=== PATIENT | female | born 1955 | race Caucasian/White ===

== ENCOUNTER 2018-10-20 15:41 | Inpatient (IN) | payer OTHER ==
[2018-10-20] MEDS ORDERED: NORepinephrine 8MG/250 ML (PMX 250 ML IV (16:20)
[2018-10-20 16:39] LABS: ABNORMAL IP MESSAGE 1; HEMATOCRIT 31.1 % (37.0-47.0); HEMOGLOBIN 8.9 g/dl (12.0-16.0); MEAN CORPUSCULAR HEMOGLOBIN 28.2 pg (29.0-33.0); MEAN CORPUSCULAR HGB CONC 28.6 g/dl (32.0-37.0); MEAN CORPUSCULAR VOLUME 98.4 fl (82.0-101.0); MEAN PLATELET VOLUME 8.7 fl (7.4-10.4); PLATELET COUNT 654 10^3/UL (140-415); RED BLOOD COUNT 3.16 10^6/ul (4.20-5.40); RED CELL DISTRIBUTION WIDTH 16.9 % (11.5-14.5)
[2018-10-20] MEDS: CEFEPIME 2GM/50 ML (PMX) 50 ML IVPB (16:39)
[2018-10-20 16:43] LABS: PROTIME 15.3 Sec (11.9-14.9); PT RATIO 1.2
[2018-10-20 16:44] LABS: PARTIAL THROMBOPLASTIN TIME 32.2 Sec (23.0-35.0)
[2018-10-20 16:45] LABS: ADD MAN DIFF? YES; POSITIVE DIFF @See below
[2018-10-20 16:46] LABS: PATH REVIEW? YES
[2018-10-20 16:48] LABS: ALANINE AMINOTRANSFERASE 10 IU/L (13-69); ALBUMIN/GLOBULIN RATIO 0.78; ALKALINE PHOSPHATASE 162 IU/L (42-121); ANION GAP 15 (5-13); ASPARTATE AMINO TRANSFERASE 44 IU/L (15-46); BLOOD UREA NITROGEN 29 mg/dl (7-20); CALCIUM 9.1 mg/dl (8.4-10.2); CARBON DIOXIDE 16 mmol/L (21-31); CHLORIDE 102 mmol/L (97-110); CREATININE 0.49 mg/dl (0.44-1.00); Estimated GFR > 60 mL/min (>60); GLUCOSE 367 mg/dl (70-220); POTASSIUM 4.6 mmol/L (3.5-5.1); SODIUM 133 mmol/L (135-144); TOTAL PROTEIN 6.8 g/dl (6.1-8.1)
[2018-10-20 16:49] LABS: AADO2 Arterial 320.3 mmHg (7.0-24.0); Allen Test ACCEPTAB; Arterial Base Excess -8.5 mmol/L (-3.0-3); Arterial Blood Gas Oxygen Sat 99.6 mmHG (95.0-98.0); Arterial COHb 0.3 % (0.0-3.0); Arterial Fraction of Oxyhgb 98.7 % (93.0-99.0); Arterial MetHb 0.6 % (0.0-1.5); Arterial pCO2 34.6 mmhg (35-45); MODE VENT - AC; Site Left Radial
[2018-10-20] MEDS: NORepinephrine 8MG/250 ML (PMX 250 ML IV (16:49)
[2018-10-20] MEDS: SODIUM CHLORIDE 0.9% 1L BAG IV* (16:50)
[2018-10-20 17:00] LABS: TROPONIN-I < 0.012 ng/ml (0.000-0.120)
[2018-10-20 17:14] LABS: ADD UMIC YES; UR AMORPHOUS CRYSTAL FEW /HPF (NONE SEEN); UR ASCORBIC ACID 20 mg/dL (NEGATIVE); UR BILIRUBIN (Dip) NEGATIVE (NEGATIVE); UR BLOOD (Dip) NEGATIVE (NEGATIVE); UR CLARITY CLOUDY (CLEAR); UR COLOR YELLOW (YELLOW); UR GLUCOSE (Dip) NEGATIVE (NEGATIVE); UR KETONES (Dip) NEGATIVE (NEGATIVE); UR LEUKOCYTE ESTERASE (Dip) 2+ Leu/ul (NEGATIVE); UR NITRITE (Dip) NEGATIVE (NEGATIVE); UR RBC 16 /HPF (0-5); UR SPECIFIC GRAVITY (Dip) 1.015 (1.003-1.030); UR TOTAL PROTEIN (Dip) 1+ mg/dl (NEGATIVE); UR UROBILINOGEN (Dip) NEGATIVE (NEGATIVE); UR WBC 32 /HPF (0-5)
[2018-10-20] MEDS: ACETAMINOPHEN 325 MG SUPP PR (17:20)
[2018-10-20] MEDS: VANCOMYCIN 1 GM (PMX) 250 ML IVPB (17:24)
[2018-10-20 17:28] LABS: ANISOCYTOSIS 1+ (0-0); BAND NEUTROPHILS % (M) 4 % (0-4); LYMPHOCYTES #M 6.5 10^3/ul (0.8-2.9); LYMPHOCYTES % (M) 25 % (15-51); MONOCYTE #M 1.3 10^3/ul (0.3-0.9); MONOCYTES % (M) 5 % (0-11); MYELOCYTES #M 0.5 10^3/ul (0.0-0.0); MYELOCYTES % (M) 2 % (0-0); PLATELET MORPHOLOGY COMMENT @See below; POLYCHROMASIA 1+ (0-0); PROMYELOCYTES #M 0.2 10^3/ul (0-0); PROMYELOCYTES % (M) 1 % (0-0); SEG NEUT #M 16.6 10^3/ul (1.6-7.5); SEGMENTED NEUTROPHILS (M) % 63 % (39-77); SMUDGE%M 7 % (0-0)
[2018-10-20] MEDS ORDERED: LIDOCAINE 1% (MDV) 20 ML INJ (19:28)
[2018-10-20] MEDS ORDERED: DOCUSATE SODIUM 100 MG CAP PO (20:30)
[2018-10-20] MEDS ORDERED: ACETAMINOPHEN 650MG/20.3ML CUP PO (20:30)
[2018-10-20] MEDS ORDERED: IPRATROPIUM (NEB) 0.5 MG/2.5 ML AMP NEB (20:30)
[2018-10-20] MEDS ORDERED: BISACODYL (EC) 5 MG TAB PO (20:30)
[2018-10-20] MEDS ORDERED: LEVALBUTEROL (NEB) 1.25 MG/0.5 ML AMP HHN (20:30)
[2018-10-20 20:36] LABS: LACTIC ACID 1.6 mmol/L (0.5-2.0)
[2018-10-20] MEDS: SOD CHLORIDE 0.9% 1,000 ML IV (20:50)
[2018-10-20] MEDS ORDERED: VANCOMYCIN IV PER PHARMACY XX (21:00)
[2018-10-21] MEDS ORDERED: IPRATROPIUM (HFA) 12.9 GM INHALER INH
[2018-10-21] MEDS ORDERED: ALBUTEROL/IPRATROPIUM (NEB) 3 ML AMP INH
[2018-10-21] MEDS ORDERED: NON-FORMULARY/PATIENT OWN MED (Methylphenidate Hcl* 10 MG) GTB
[2018-10-21] MEDS: PIPER-TAZO 3.375 GM IV (PMX) 100 ML IVPB ×4 (00:55→17:57)
[2018-10-21 01:41] LABS: CREATINE KINASE 64 IU/L (23-200)
[2018-10-21 01:51] LABS: CK INDEX 1.6; CK-MB 1.01 ng/ml (0.0-2.4)
[2018-10-21 01:54] LABS: TROPONIN-I 0.037 ng/ml (0.000-0.120)
[2018-10-21] MEDS: LEVETIRACETAM (100 MG/ML PO SYG) GTB ×3 (02:04→16:02)
[2018-10-21] MEDS: VANCOMYCIN 500 MG (PMX) 100 ML IVPB ×2 (04:26→16:03)
[2018-10-21 05:21] LABS: ADD MAN DIFF? NO
[2018-10-21 05:37] LABS: WHITE BLOOD COUNT 11.6 10^3/ul (4.8-10.8)
[2018-10-21 05:37] LABS: BASOPHILS % 0.3 % (0.0-2.0); EOSINOPHILS % 0.3 % (0.0-7.0); HEMATOCRIT 25.4 % (37.0-47.0); HEMOGLOBIN 7.7 g/dl (12.0-16.0); LYMPHOCYTES # 1.2 10^3/ul (0.8-2.9); LYMPHOCYTES % 10.4 % (15.0-51.0); MEAN CORPUSCULAR HEMOGLOBIN 28.4 pg (29.0-33.0); MEAN CORPUSCULAR HGB CONC 30.3 g/dl (32.0-37.0); MEAN CORPUSCULAR VOLUME 93.7 fl (82.0-101.0); MEAN PLATELET VOLUME 8.6 fl (7.4-10.4); MONOCYTE # 0.7 10^3/ul (0.3-0.9); MONOCYTES % 5.7 % (0.0-11.0); NEUTROPHIL # 9.5 10^3/ul (1.6-7.5); NEUTROPHILS % 81.8 % (39.0-77.0); PLATELET COUNT 492 10^3/UL (140-415); RED BLOOD COUNT 2.71 10^6/ul (4.20-5.40)
[2018-10-21 05:46] LABS: CREATINE KINASE 39 IU/L (23-200)
[2018-10-21 05:49] LABS: ALANINE AMINOTRANSFERASE 28 IU/L (13-69); ALBUMIN 2.8 g/dl (3.3-4.9); ALBUMIN/GLOBULIN RATIO 0.73; ALKALINE PHOSPHATASE 182 IU/L (42-121); ANION GAP 9 (5-13); ASPARTATE AMINO TRANSFERASE 30 IU/L (15-46); BILIRUBIN,INDIRECT 0.1 mg/dl (0-1.1); BILIRUBIN,TOTAL 0.1 mg/dl (0.2-1.3); BLOOD UREA NITROGEN 22 mg/dl (7-20); CALCIUM 8.9 mg/dl (8.4-10.2); CARBON DIOXIDE 20 mmol/L (21-31); CHLORIDE 110 mmol/L (97-110); CHOL/HDL RATIO 3.4 RATIO; CHOLESTEROL 108 mg/dl (100-200); CREATININE 0.35 mg/dl (0.44-1.00); Estimated GFR > 60 mL/min (>60); GLUCOSE 125 mg/dl (70-220); HDL CHOLESTEROL 31 mg/dl (35-98); LDL CHOLESTEROL,CALCULATED 66 mg/dl; MAGNESIUM 2.1 mg/dl (1.7-2.5); POTASSIUM 3.9 mmol/L (3.5-5.1); SODIUM 139 mmol/L (135-144); TOTAL PROTEIN 6.6 g/dl (6.1-8.1); TRIGLYCERIDES 56 mg/dl (0-149)
[2018-10-21 05:58] LABS: CK INDEX 2.4; CK-MB 0.93 ng/ml (0.0-2.4); TROPONIN-I 0.018 ng/ml (0.000-0.120)
[2018-10-21 07:20] LABS: HEMOGLOBIN A1C 5.3 % (0-5.9)
[2018-10-21] MEDS: ZINC SULFATE 220 MG CAP GTB (08:35)
[2018-10-21] MEDS: SOD CHLORIDE 0.9% 1,000 ML IV ×3 (08:35→21:22)
[2018-10-21] MEDS: ASCORBIC ACID 500 MG TAB GTB (08:35)
[2018-10-21] MEDS: FAMOTIDINE 20 MG INJ IV (08:35)
[2018-10-21] MEDS: MULTIVITAMINS 30 ML CUP GTB (08:35)
[2018-10-21] MEDS: METHYLPHENIDATE 5 MG TAB GTB ×2 (08:39→21:00)
[2018-10-21] MEDS ORDERED: POT CITRATE/CITRIC ACID (PO SYG) GTB (09:00)
[2018-10-21] MEDS ORDERED: NON-FORMULARY/PATIENT OWN MED (Multivitamin with Minerals (Multivitamins with Minerals) 1 GTB (09:00)
[2018-10-21] MEDS ORDERED: NON-FORMULARY/PATIENT OWN MED (Amino Acids/Protein Hydrolys (Pro-Stat Liquid) 30 ML) GTB (09:00)
[2018-10-21] MEDS ORDERED: SELENIUM 200 MCG GTB (09:00)
[2018-10-21 11:33] LABS: IRON 17 ug/dl (35-150)
[2018-10-21 11:43] LABS: % IRON SATURATION 8 % SAT (22-52); TOTAL IRON BINDING CAPACITY 201 ug/dl (241-421)
[2018-10-21] MEDS: TOPIRAMATE 100 MG TAB GTB (13:59)
[2018-10-21] MEDS: ATORVASTATIN 10 MG TAB GTB (21:22)
[2018-10-21] MEDS: SODIUM HYPOCHLORITE (1/40) 1 APPLIC BTL IRR (21:22)
[2018-10-21] MEDS: BALSAM PERU/CASTOR OIL 60 GM TUBE TOP (21:22)
[2018-10-21] MEDS: LACTOBACILLUS RHAMNOSUS CAP PO (21:22)
[2018-10-22] MEDS: PIPER-TAZO 3.375 GM IV (PMX) 100 ML IVPB ×4 (00:44→17:10)
[2018-10-22] MEDS: TOPIRAMATE 100 MG TAB GTB ×2 (00:44→13:48)
[2018-10-22] MEDS: LEVETIRACETAM (100 MG/ML PO SYG) GTB ×4 (00:44→22:11)
[2018-10-22 04:01] LABS: ADD MAN DIFF? NO
[2018-10-22 04:04] LABS: BASOPHILS % 0.1 % (0.0-2.0); EOSINOPHILS # 0.1 10^3/ul (0.0-0.5); EOSINOPHILS % 0.7 % (0.0-7.0); HEMATOCRIT 25.9 % (37.0-47.0); HEMOGLOBIN 7.8 g/dl (12.0-16.0); LYMPHOCYTES # 1.1 10^3/ul (0.8-2.9); LYMPHOCYTES % 8.9 % (15.0-51.0); MEAN CORPUSCULAR HEMOGLOBIN 28.8 pg (29.0-33.0); MEAN CORPUSCULAR HGB CONC 30.1 g/dl (32.0-37.0); MEAN CORPUSCULAR VOLUME 95.6 fl (82.0-101.0); MEAN PLATELET VOLUME 8.4 fl (7.4-10.4); MONOCYTE # 0.6 10^3/ul (0.3-0.9); MONOCYTES % 5.2 % (0.0-11.0); NEUTROPHILS % 84.4 % (39.0-77.0); PLATELET COUNT 415 10^3/UL (140-415); RED BLOOD COUNT 2.71 10^6/ul (4.20-5.40); RED CELL DISTRIBUTION WIDTH 17.2 % (11.5-14.5)
[2018-10-22 04:04] LABS: WHITE BLOOD COUNT 11.9 10^3/ul (4.8-10.8)
[2018-10-22 04:26] LABS: ALANINE AMINOTRANSFERASE 13 IU/L (13-69); ALBUMIN 2.9 g/dl (3.3-4.9); ALBUMIN/GLOBULIN RATIO 0.74; ALKALINE PHOSPHATASE 156 IU/L (42-121); ANION GAP 12 (5-13); ASPARTATE AMINO TRANSFERASE 23 IU/L (15-46); BILIRUBIN,INDIRECT 0.1 mg/dl (0-1.1); BILIRUBIN,TOTAL 0.1 mg/dl (0.2-1.3); BLOOD UREA NITROGEN 17 mg/dl (7-20); CALCIUM 8.8 mg/dl (8.4-10.2); CARBON DIOXIDE 19 mmol/L (21-31); CHLORIDE 108 mmol/L (97-110); CREATININE 0.31 mg/dl (0.44-1.00); Estimated GFR > 60 mL/min (>60); GLUCOSE 124 mg/dl (70-220); POTASSIUM 3.1 mmol/L (3.5-5.1); SODIUM 139 mmol/L (135-144); TOTAL PROTEIN 6.8 g/dl (6.1-8.1)
[2018-10-22 04:32] LABS: VANCOMYCIN,TROUGH 11.1 ug/ml (10.0-20.0)
[2018-10-22] MEDS: VANCOMYCIN 500 MG (PMX) 100 ML IVPB ×2 (05:01→16:13)
[2018-10-22 07:49] LABS: AADO2 Arterial 39.8 mmHg (7.0-24.0); Allen Test ACCEPTAB; Arterial Base Excess -3.3 mmol/L (-3.0-3); Arterial COHb 0.4 % (0.0-3.0); Arterial Fraction of Oxyhgb 98.1 % (93.0-99.0); Arterial HCO3 20.2 mmol/L (22.0-26.0); Arterial MetHb 0.5 % (0.0-1.5); Arterial pCO2 29.6 mmhg (35-45); MODE VENT - AC; Site Right Radial
[2018-10-22] MEDS: MULTIVITAMINS 30 ML CUP GTB (08:18)
[2018-10-22] MEDS: ZINC SULFATE 220 MG CAP GTB (08:18)
[2018-10-22] MEDS: FAMOTIDINE 20 MG TAB GTB (08:18)
[2018-10-22] MEDS: ASCORBIC ACID 500 MG TAB GTB (08:18)
[2018-10-22] MEDS: LACTOBACILLUS RHAMNOSUS CAP PO ×2 (08:18→20:52)
[2018-10-22] MEDS: SODIUM HYPOCHLORITE (1/40) 1 APPLIC BTL IRR ×2 (08:18→20:59)
[2018-10-22] MEDS: LEVETIRACETAM 1000 MG (PMX) 100 ML IVPB (08:19)
[2018-10-22] MEDS: BALSAM PERU/CASTOR OIL 60 GM TUBE TOP ×2 (08:19→20:53)
[2018-10-22 10:10] LABS: CREATINE KINASE 31 IU/L (23-200)
[2018-10-22 10:23] LABS: CK-MB 0.61 ng/ml (0.0-2.4); TROPONIN-I < 0.012 ng/ml (0.000-0.120)
[2018-10-22] MEDS: METHYLPHENIDATE 5 MG TAB GTB ×2 (10:27→20:58)
[2018-10-22] MEDS: ENALAPRILAT 1.25 MG INJ IV (10:27)
[2018-10-22] MEDS: SOD CHLORIDE 0.9% 1,000 ML IV ×2 (13:44→21:07)
[2018-10-22] MEDS: ATORVASTATIN 10 MG TAB GTB (20:52)
[2018-10-22] MEDS: METOPROLOL 25 MG TAB PO (20:53)
[2018-10-23] MEDS: POTASSIUM CHLORIDE 100 ML IVPB ×2 (01:02→03:16)
[2018-10-23] MEDS: TOPIRAMATE 100 MG TAB GTB ×2 (01:08→13:19)
[2018-10-23] MEDS: PIPER-TAZO 3.375 GM IV (PMX) 100 ML IVPB ×4 (02:03→18:33)
[2018-10-23] MEDS: LEVETIRACETAM (100 MG/ML PO SYG) GTB ×3 (06:01→21:28)
[2018-10-23] MEDS: VANCOMYCIN 500 MG (PMX) 100 ML IVPB ×2 (06:01→17:18)
[2018-10-23 06:25] LABS: ABNORMAL IP MESSAGE 1; HEMATOCRIT 22.1 % (37.0-47.0); MEAN CORPUSCULAR HGB CONC 29.9 g/dl (32.0-37.0); MEAN CORPUSCULAR VOLUME 93.6 fl (82.0-101.0); MEAN PLATELET VOLUME 8.4 fl (7.4-10.4); PLATELET COUNT 384 10^3/UL (140-415); RED BLOOD COUNT 2.36 10^6/ul (4.20-5.40); RED CELL DISTRIBUTION WIDTH 16.7 % (11.5-14.5)
[2018-10-23 06:25] LABS: WHITE BLOOD COUNT 9.5 10^3/ul (4.8-10.8)
[2018-10-23 06:34] LABS: POSITIVE DIFF @See below
[2018-10-23 06:35] LABS: ADD MAN DIFF? YES
[2018-10-23 06:36] LABS: HEMOGLOBIN 6.6 g/dl (12.0-16.0)
[2018-10-23 06:57] LABS: ALANINE AMINOTRANSFERASE 24 IU/L (13-69); ALBUMIN 2.5 g/dl (3.3-4.9); ALBUMIN/GLOBULIN RATIO 0.69; ALKALINE PHOSPHATASE 147 IU/L (42-121); ANION GAP 9 (5-13); ASPARTATE AMINO TRANSFERASE 30 IU/L (15-46); BILIRUBIN,INDIRECT 0.1 mg/dl (0-1.1); BILIRUBIN,TOTAL 0.1 mg/dl (0.2-1.3); BLOOD UREA NITROGEN 12 mg/dl (7-20); CALCIUM 8.7 mg/dl (8.4-10.2); CARBON DIOXIDE 20 mmol/L (21-31); CHLORIDE 108 mmol/L (97-110); Estimated GFR > 60 mL/min (>60); GLUCOSE 110 mg/dl (70-220); POTASSIUM 3.1 mmol/L (3.5-5.1); SODIUM 137 mmol/L (135-144); TOTAL PROTEIN 6.1 g/dl (6.1-8.1)
[2018-10-23 07:41] LABS: MAGNESIUM 1.7 mg/dl (1.7-2.5)
[2018-10-23 08:08] LABS: BAND NEUTROPHILS #M 0.1 10^3/ul (0.0-0.6); BAND NEUTROPHILS % (M) 2 % (0-4); BURR CELLS 1+ (0-0); EOSINOPHILS % (M) 2 % (0-7); HYPOCHROMASIA 1+ (0-0); LYMPHOCYTES #M 0.8 10^3/ul (0.8-2.9); LYMPHOCYTES % (M) 9 % (15-51); MONOCYTE #M 0.3 10^3/ul (0.3-0.9); MONOCYTES % (M) 4 % (0-11); MYELOCYTES % (M) 1 % (0-0); OVALOCYTES 1+ (0-0); PLATELET ESTIMATE NORMAL; POIKILOCYTOSIS 1+ (0-0); POLYCHROMASIA 2+ (0-0); SEG NEUT #M 7.8 10^3/ul (1.6-7.5); SEGMENTED NEUTROPHILS (M) % 82 % (39-77); SMUDGE%M 20 % (0-0)
[2018-10-23] MEDS: FAMOTIDINE 20 MG TAB GTB (10:09)
[2018-10-23] MEDS: ASCORBIC ACID 500 MG TAB GTB (10:09)
[2018-10-23] MEDS: POTASSIUM CHLORIDE 20 MEQ POWDER FOR ORAL SOLN GTB (10:09)
[2018-10-23] MEDS: LACTOBACILLUS RHAMNOSUS CAP PO ×2 (10:09→21:28)
[2018-10-23] MEDS: ZINC SULFATE 220 MG CAP GTB (10:09)
[2018-10-23] MEDS: METOPROLOL 25 MG TAB PO (10:10)
[2018-10-23] MEDS: BALSAM PERU/CASTOR OIL 60 GM TUBE TOP ×2 (10:10→21:29)
[2018-10-23] MEDS: SODIUM HYPOCHLORITE (1/40) 1 APPLIC BTL IRR ×2 (10:10→21:29)
[2018-10-23] MEDS: SOD CHLORIDE 0.9% 1,000 ML IV ×2 (10:11→21:35)
[2018-10-23 12:46] LABS: IMMEDIATE SPIN CROSSMATCH 1 1
[2018-10-23] MEDS: SOD CHLORIDE 0.9% 250 ML IV* (13:00)
[2018-10-23] MEDS: METHYLPHENIDATE 5 MG TAB GTB ×2 (13:00→21:35)
[2018-10-23] MEDS: MULTIVITAMINS 30 ML CUP GTB (13:19)
[2018-10-23] MEDS: ENALAPRILAT 2.5 MG INJ IV (13:37)
[2018-10-23] MEDS: METOPROLOL 50 MG TAB PO (21:28)
[2018-10-23] MEDS: ATORVASTATIN 10 MG TAB GTB (21:28)
[2018-10-24] MEDS: TOPIRAMATE 100 MG TAB GTB ×2 (00:22→12:10)
[2018-10-24] MEDS: PIPER-TAZO 3.375 GM IV (PMX) 100 ML IVPB ×3 (00:22→12:11)
[2018-10-24] MEDS: ENALAPRILAT 2.5 MG INJ IV (00:29)
[2018-10-24] MEDS: VANCOMYCIN 500 MG (PMX) 100 ML IVPB ×2 (04:43→16:35)
[2018-10-24] MEDS: SOD CHLORIDE 0.9% 1,000 ML IV ×2 (04:45→14:07)
[2018-10-24 06:11] LABS: ADD MAN DIFF? NO
[2018-10-24 06:15] LABS: BASOPHILS % 0.1 % (0.0-2.0); EOSINOPHILS # 0.2 10^3/ul (0.0-0.5); HEMATOCRIT 26.9 % (37.0-47.0); HEMOGLOBIN 8.5 g/dl (12.0-16.0); LYMPHOCYTES # 1.2 10^3/ul (0.8-2.9); LYMPHOCYTES % 12.3 % (15.0-51.0); MEAN CORPUSCULAR HEMOGLOBIN 28.2 pg (29.0-33.0); MEAN CORPUSCULAR HGB CONC 31.6 g/dl (32.0-37.0); MEAN CORPUSCULAR VOLUME 89.4 fl (82.0-101.0); MEAN PLATELET VOLUME 8.6 fl (7.4-10.4); MONOCYTE # 0.5 10^3/ul (0.3-0.9); MONOCYTES % 5.6 % (0.0-11.0); NEUTROPHIL # 7.5 10^3/ul (1.6-7.5); NEUTROPHILS % 79.4 % (39.0-77.0); PLATELET COUNT 384 10^3/UL (140-415); RED BLOOD COUNT 3.01 10^6/ul (4.20-5.40); RED CELL DISTRIBUTION WIDTH 16.4 % (11.5-14.5)
[2018-10-24 06:15] LABS: WHITE BLOOD COUNT 9.5 10^3/ul (4.8-10.8)
[2018-10-24] MEDS: LEVETIRACETAM (100 MG/ML PO SYG) GTB ×3 (06:21→21:03)
[2018-10-24 07:02] LABS: ALANINE AMINOTRANSFERASE 24 IU/L (13-69); ALBUMIN 2.6 g/dl (3.3-4.9); ALBUMIN/GLOBULIN RATIO 0.68; ALKALINE PHOSPHATASE 149 IU/L (42-121); ANION GAP 11 (5-13); ASPARTATE AMINO TRANSFERASE 29 IU/L (15-46); BILIRUBIN,INDIRECT 0.2 mg/dl (0-1.1); BILIRUBIN,TOTAL 0.2 mg/dl (0.2-1.3); BLOOD UREA NITROGEN 13 mg/dl (7-20); CALCIUM 8.8 mg/dl (8.4-10.2); CARBON DIOXIDE 21 mmol/L (21-31); CHLORIDE 106 mmol/L (97-110); CREATININE 0.34 mg/dl (0.44-1.00); Estimated GFR > 60 mL/min (>60); GLUCOSE 104 mg/dl (70-220); POTASSIUM 3.3 mmol/L (3.5-5.1); SODIUM 138 mmol/L (135-144); TOTAL PROTEIN 6.4 g/dl (6.1-8.1)
[2018-10-24] MEDS: BALSAM PERU/CASTOR OIL 60 GM TUBE TOP ×2 (07:50→20:55)
[2018-10-24] MEDS: MULTIVITAMINS 30 ML CUP GTB (09:01)
[2018-10-24] MEDS: METHYLPHENIDATE 5 MG TAB GTB ×2 (09:01→21:03)
[2018-10-24] MEDS: FAMOTIDINE 20 MG TAB GTB (09:01)
[2018-10-24] MEDS: ZINC SULFATE 220 MG CAP GTB (09:01)
[2018-10-24] MEDS: LACTOBACILLUS RHAMNOSUS CAP PO ×2 (09:01→20:54)
[2018-10-24] MEDS: METOPROLOL 50 MG TAB PO ×2 (09:02→20:54)
[2018-10-24] MEDS: ASCORBIC ACID 500 MG TAB GTB (09:02)
[2018-10-24] MEDS: SODIUM HYPOCHLORITE (1/40) 1 APPLIC BTL IRR ×2 (09:02→20:56)
[2018-10-24] MEDS: HYDROmorphONE 0.5 MG/0.5 ML SYG IV (15:35)
[2018-10-24] MEDS: CEFEPIME 1GM/50 ML (PMX) 50 ML IVPB ×2 (16:35→20:54)
[2018-10-24] MEDS: ATORVASTATIN 10 MG TAB GTB (20:54)
[2018-10-24] MEDS: BENAZEPRIL 10 MG TAB PO (20:55)
[2018-10-25] MEDS: TOPIRAMATE 100 MG TAB GTB ×3 (01:11→22:08)
[2018-10-25] MEDS: SOD CHLORIDE 0.9% 1,000 ML IV ×4 (01:11→20:07)
[2018-10-25] MEDS: VANCOMYCIN 500 MG (PMX) 100 ML IVPB ×2 (05:43→16:36)
[2018-10-25] MEDS: LEVETIRACETAM (100 MG/ML PO SYG) GTB ×3 (05:44→22:08)
[2018-10-25] MEDS: CEFEPIME 1GM/50 ML (PMX) 50 ML IVPB ×2 (09:10→22:03)
[2018-10-25] MEDS: ASCORBIC ACID 500 MG TAB GTB (09:10)
[2018-10-25] MEDS: ZINC SULFATE 220 MG CAP GTB (09:10)
[2018-10-25] MEDS: MULTIVITAMINS 30 ML CUP GTB (09:10)
[2018-10-25] MEDS: FAMOTIDINE 20 MG TAB GTB (09:10)
[2018-10-25] MEDS: LACTOBACILLUS RHAMNOSUS CAP PO ×2 (09:10→22:02)
[2018-10-25] MEDS: METOPROLOL 50 MG TAB PO ×2 (09:11→22:04)
[2018-10-25] MEDS: BENAZEPRIL 10 MG TAB PO (09:11)
[2018-10-25] MEDS: BALSAM PERU/CASTOR OIL 60 GM TUBE TOP ×2 (09:12→22:03)
[2018-10-25] MEDS: SODIUM HYPOCHLORITE (1/40) 1 APPLIC BTL IRR ×2 (09:12→22:02)
[2018-10-25] MEDS: METHYLPHENIDATE 5 MG TAB GTB ×2 (09:14→22:02)
[2018-10-25] MEDS: ATORVASTATIN 10 MG TAB GTB (22:02)
[2018-10-25] MEDS: BENAZEPRIL 20 MG TAB PO (22:04)
[2018-10-25] MEDS: ENALAPRILAT 2.5 MG INJ IV (22:08)
[2018-10-26] MEDS: LABETALOL HCL 20MG INJ IV (03:00)
[2018-10-26] MEDS: SOD CHLORIDE 0.9% 1,000 ML IV ×3 (06:11→18:30)
[2018-10-26] MEDS: LEVETIRACETAM (100 MG/ML PO SYG) GTB ×3 (06:11→21:07)
[2018-10-26] MEDS: VANCOMYCIN 500 MG (PMX) 100 ML IVPB ×2 (06:11→17:17)
[2018-10-26 06:48] LABS: ADD MAN DIFF? NO
[2018-10-26 06:55] LABS: BASOPHILS % 0.2 % (0.0-2.0); EOSINOPHILS # 0.1 10^3/ul (0.0-0.5); EOSINOPHILS % 0.5 % (0.0-7.0); HEMATOCRIT 33.6 % (37.0-47.0); HEMOGLOBIN 10.5 g/dl (12.0-16.0); LYMPHOCYTES # 0.8 10^3/ul (0.8-2.9); MEAN CORPUSCULAR HEMOGLOBIN 27.7 pg (29.0-33.0); MEAN CORPUSCULAR HGB CONC 31.3 g/dl (32.0-37.0); MEAN CORPUSCULAR VOLUME 88.7 fl (82.0-101.0); MEAN PLATELET VOLUME 9.4 fl (7.4-10.4); MONOCYTE # 0.5 10^3/ul (0.3-0.9); MONOCYTES % 4.1 % (0.0-11.0); NEUTROPHIL # 11.8 10^3/ul (1.6-7.5); NEUTROPHILS % 88.6 % (39.0-77.0); PLATELET COUNT 455 10^3/UL (140-415); RED BLOOD COUNT 3.79 10^6/ul (4.20-5.40); RED CELL DISTRIBUTION WIDTH 16.4 % (11.5-14.5)
[2018-10-26 06:55] LABS: WHITE BLOOD COUNT 13.3 10^3/ul (4.8-10.8)
[2018-10-26 06:58] LABS: POSITIVE DIFF @See below
[2018-10-26 07:24] LABS: ANION GAP 13 (5-13); BLOOD UREA NITROGEN 21 mg/dl (7-20); CARBON DIOXIDE 23 mmol/L (21-31); CHLORIDE 103 mmol/L (97-110); CREATININE 0.48 mg/dl (0.44-1.00); Estimated GFR > 60 mL/min (>60); GLUCOSE 139 mg/dl (70-220); SODIUM 139 mmol/L (135-144)
[2018-10-26 07:33] LABS: PHOSPHORUS 5.5 mg/dl (2.5-4.9)
[2018-10-26 07:35] LABS: POTASSIUM 2.9 mmol/L (3.5-5.1)
[2018-10-26] MEDS: LACTOBACILLUS RHAMNOSUS CAP PO ×2 (08:34→21:06)
[2018-10-26] MEDS: POTASSIUM CHLORIDE 20 MEQ POWDER FOR ORAL SOLN GTB ×2 (08:34→12:34)
[2018-10-26] MEDS: FAMOTIDINE 20 MG TAB GTB (08:34)
[2018-10-26] MEDS: BENAZEPRIL 20 MG TAB PO ×2 (08:34→21:06)
[2018-10-26] MEDS: ASCORBIC ACID 500 MG TAB GTB (08:34)
[2018-10-26] MEDS: ZINC SULFATE 220 MG CAP GTB (08:35)
[2018-10-26] MEDS: BALSAM PERU/CASTOR OIL 60 GM TUBE TOP ×2 (08:35→21:06)
[2018-10-26] MEDS: METOPROLOL 50 MG TAB PO ×2 (08:35→21:06)
[2018-10-26] MEDS: MULTIVITAMINS 30 ML CUP GTB (08:35)
[2018-10-26] MEDS: CEFEPIME 1GM/50 ML (PMX) 50 ML IVPB ×2 (08:35→21:05)
[2018-10-26] MEDS: SODIUM HYPOCHLORITE (1/40) 1 APPLIC BTL IRR ×2 (08:35→21:05)
[2018-10-26] MEDS: METHYLPHENIDATE 5 MG TAB GTB ×2 (09:09→21:05)
[2018-10-26] MEDS: TOPIRAMATE 100 MG TAB GTB ×2 (12:32→23:38)
[2018-10-26 16:51] LABS: VANCOMYCIN,TROUGH 14.2 ug/ml (10.0-20.0)
[2018-10-26] MEDS: ATORVASTATIN 10 MG TAB GTB (21:05)
[2018-10-27] MEDS: ENALAPRILAT 2.5 MG INJ IV (01:45)
[2018-10-27] MEDS: SOD CHLORIDE 0.9% 1,000 ML IV ×3 (02:07→22:56)
[2018-10-27] MEDS: hydrALAzine 20 MG INJ IV (04:44)
[2018-10-27] MEDS: LEVETIRACETAM (100 MG/ML PO SYG) GTB ×3 (05:19→21:10)
[2018-10-27] MEDS: VANCOMYCIN 500 MG (PMX) 100 ML IVPB ×2 (05:19→16:47)
[2018-10-27] MEDS: FAMOTIDINE 20 MG TAB GTB (08:57)
[2018-10-27] MEDS: ZINC SULFATE 220 MG CAP GTB (08:57)
[2018-10-27] MEDS: ASCORBIC ACID 500 MG TAB GTB (08:57)
[2018-10-27] MEDS: BENAZEPRIL 20 MG TAB PO ×2 (08:57→21:09)
[2018-10-27] MEDS: MULTIVITAMINS 30 ML CUP GTB (08:57)
[2018-10-27] MEDS: LACTOBACILLUS RHAMNOSUS CAP PO ×2 (08:57→21:12)
[2018-10-27] MEDS: METHYLPHENIDATE 5 MG TAB GTB ×2 (08:57→21:10)
[2018-10-27] MEDS: METOPROLOL 50 MG TAB PO ×2 (08:58→21:10)
[2018-10-27] MEDS: BALSAM PERU/CASTOR OIL 60 GM TUBE TOP ×2 (08:59→21:09)
[2018-10-27] MEDS: SODIUM HYPOCHLORITE (1/40) 1 APPLIC BTL IRR ×2 (08:59→21:09)
[2018-10-27] MEDS: CEFEPIME 1GM/50 ML (PMX) 50 ML IVPB ×2 (09:03→21:11)
[2018-10-27] MEDS: TOPIRAMATE 100 MG TAB GTB ×2 (12:26→23:55)
[2018-10-27] MEDS: ATORVASTATIN 10 MG TAB GTB (21:12)
[2018-10-28] MEDS: ENALAPRILAT 2.5 MG INJ IV ×2 (05:14→13:41)
[2018-10-28] MEDS: LEVETIRACETAM (100 MG/ML PO SYG) GTB ×2 (06:08→13:34)
[2018-10-28] MEDS: VANCOMYCIN 500 MG (PMX) 100 ML IVPB ×2 (06:08→17:08)
[2018-10-28 06:39] LABS: BLOOD UREA NITROGEN 18 mg/dl (7-20)
[2018-10-28] MEDS: MULTIVITAMINS 30 ML CUP GTB (09:10)
[2018-10-28] MEDS: METHYLPHENIDATE 5 MG TAB GTB (09:10)
[2018-10-28] MEDS: ZINC SULFATE 220 MG CAP GTB (09:11)
[2018-10-28] MEDS: LACTOBACILLUS RHAMNOSUS CAP PO (09:11)
[2018-10-28] MEDS: BENAZEPRIL 20 MG TAB PO (09:11)
[2018-10-28] MEDS: FAMOTIDINE 20 MG TAB GTB (09:11)
[2018-10-28] MEDS: ASCORBIC ACID 500 MG TAB GTB (09:11)
[2018-10-28] MEDS: METOPROLOL 50 MG TAB PO (09:11)
[2018-10-28] MEDS: CEFEPIME 1GM/50 ML (PMX) 50 ML IVPB (09:12)
[2018-10-28] MEDS: SODIUM HYPOCHLORITE (1/40) 1 APPLIC BTL IRR (09:12)
[2018-10-28] MEDS: BALSAM PERU/CASTOR OIL 60 GM TUBE TOP (09:12)
[2018-10-28] MEDS: SOD CHLORIDE 0.9% 1,000 ML IV (09:16)
[2018-10-28] MEDS: TOPIRAMATE 100 MG TAB GTB (13:34)
[2018-10-28] MEDS: hydrALAzine 20 MG INJ IV (17:16)
[2018-10-28] MEDS ORDERED: BENAZEPRIL 40 MG TAB PO (21:00)
== END 2018-10-28 18:06 | DRG 870 ==
LOC: E/R 15:41 → 6WM 10-22 23:27 → ICU 20:08
PROC: 5A1955Z Respiratory Ventilation, Greater than 96 Consecutive Hours (ICD-10-PCS; principal; 2018-10-20)
PROC: 06HY33Z Insertion of Infusion Device into Lower Vein, Percutaneous Approach (ICD-10-PCS; 2018-10-20)
PROC: 0W9B30Z Drainage of Left Pleural Cavity with Drainage Device, Percutaneous Approach (ICD-10-PCS; 2018-10-20)
PROC: 30233N1 Transfusion of Nonautologous Red Blood Cells into Peripheral Vein, Percutaneous Approach (ICD-10-PCS; 2018-10-23)
PROC: 0W9B30Z Drainage of Left Pleural Cavity with Drainage Device, Percutaneous Approach (ICD-10-PCS; 2018-10-24)
PROC: 0BPQX0Z Removal of Drainage Device from Pleura, External Approach (ICD-10-PCS; 2018-10-24)
DX: A41.9 Sepsis, unspecified organism (principal); I46.9 Cardiac arrest, cause unspecified; L89.154 Pressure ulcer of sacral region, stage 4; R65.21 Severe sepsis with septic shock; J96.20 Acute and chronic respiratory failure, unspecified whether with hypoxia or hypercapnia; J18.9 Pneumonia, unspecified organism; N39.0 Urinary tract infection, site not specified; E87.2 Acidosis; E44.0 Moderate protein-calorie malnutrition; G93.49 Other encephalopathy; S27.0XXA Traumatic pneumothorax, initial encounter; T85.628A Displacement of other specified internal prosthetic devices, implants and grafts, initial encounter; Z68.1 Body mass index [BMI] 19.9 or less, adult; D64.9 Anemia, unspecified; E78.5 Hyperlipidemia, unspecified; G40.909 Epilepsy, unspecified, not intractable, without status epilepticus; I10 Essential (primary) hypertension; J98.2 Interstitial emphysema; R13.10 Dysphagia, unspecified; X58.XXXA Exposure to other specified factors, initial encounter; Y83.8 Other surgical procedures as the cause of abnormal reaction of the patient, or of later complication, without mention of misadventure at the time of the procedure; I69.198 Other sequelae of nontraumatic intracerebral hemorrhage; Z93.1 Gastrostomy status; Z93.0 Tracheostomy status; Z98.2 Presence of cerebrospinal fluid drainage device; Z74.01 Bed confinement status
CPT/HCPCS: 36415; 36430; 36600; 70450; 71045; 80048; 80053; 80061; 80202; 81001; 82306; 82550; 82553; 82565; 82728; 82803; 83036; 83540; 83605; 83735; 84100; 84443; 84484; 84520; 85025; 85610; 85730; 86850; 86900; 86901; 86920; 87040; 87070; 87081; 87086; 92950; 93005; 93306; 94002; 94003; 95819; 96365; 96366; 96367; 96375; 99291-25

== ENCOUNTER 2018-12-01 18:55 | Inpatient (IN) | payer OTHER ==
[2018-12-01 19:56] LABS: ADD MAN DIFF? NO
[2018-12-01 19:58] LABS: BASOPHILS % 0.4 % (0.0-2.0); EOSINOPHILS # 0.3 10^3/ul (0.0-0.5); EOSINOPHILS % 3.8 % (0.0-7.0); HEMATOCRIT 33.3 % (37.0-47.0); HEMOGLOBIN 10.3 g/dl (12.0-16.0); LYMPHOCYTES # 1.6 10^3/ul (0.8-2.9); LYMPHOCYTES % 18.9 % (15.0-51.0); MEAN CORPUSCULAR HEMOGLOBIN 27.2 pg (29.0-33.0); MEAN CORPUSCULAR HGB CONC 30.9 g/dl (32.0-37.0); MEAN CORPUSCULAR VOLUME 87.9 fl (82.0-101.0); MEAN PLATELET VOLUME 9.1 fl (7.4-10.4); MONOCYTE # 0.6 10^3/ul (0.3-0.9); MONOCYTES % 6.8 % (0.0-11.0); NEUTROPHIL # 5.7 10^3/ul (1.6-7.5); NEUTROPHILS % 69.4 % (39.0-77.0); PLATELET COUNT 594 10^3/UL (140-415); RED BLOOD COUNT 3.79 10^6/ul (4.20-5.40); RED CELL DISTRIBUTION WIDTH 15.2 % (11.5-14.5)
[2018-12-01 19:58] LABS: WHITE BLOOD COUNT 8.2 10^3/ul (4.8-10.8)
[2018-12-01] MEDS: SODIUM CHLORIDE 0.9% 1L BAG IV* (20:01)
[2018-12-01 20:02] LABS: INR 1.01; PROTIME 13.4 Sec (11.9-14.9)
[2018-12-01 20:03] LABS: PARTIAL THROMBOPLASTIN TIME 23.7 Sec (23.0-35.0)
[2018-12-01 20:06] LABS: ALANINE AMINOTRANSFERASE 28 IU/L (13-69); ALBUMIN 3.9 g/dl (3.3-4.9); ALBUMIN/GLOBULIN RATIO 0.76; ALKALINE PHOSPHATASE 178 IU/L (42-121); ANION GAP 11 (5-13); ASPARTATE AMINO TRANSFERASE 26 IU/L (15-46); BILIRUBIN,INDIRECT 0.2 mg/dl (0-1.1); BILIRUBIN,TOTAL 0.2 mg/dl (0.2-1.3); BLOOD UREA NITROGEN 63 mg/dl (7-20); CARBON DIOXIDE 27 mmol/L (21-31); CHLORIDE 98 mmol/L (97-110); CREATININE 0.66 mg/dl (0.44-1.00); Estimated GFR > 60 mL/min (>60); GLUCOSE 142 mg/dl (70-220); POTASSIUM 4.5 mmol/L (3.5-5.1); SODIUM 136 mmol/L (135-144)
[2018-12-01 20:08] LABS: AADO2 Arterial 77.3 mmHg (7.0-24.0); Allen Test ACCEPTAB; Arterial Base Excess 1.8 mmol/L (-3.0-3); Arterial Blood Gas Oxygen Sat 99.5 mmHG (95.0-98.0); Arterial COHb 0.2 % (0.0-3.0); Arterial Fraction of Oxyhgb 98.9 % (93.0-99.0); Arterial HCO3 25.5 mmol/L (22.0-26.0); Arterial MetHb 0.4 % (0.0-1.5); Arterial pCO2 36.9 mmhg (35-45); MODE VENT - AC; Site Right Radial
[2018-12-01 20:17] LABS: TROPONIN-I < 0.012 ng/ml (0.000-0.120)
[2018-12-01 21:36] LABS: ADD UMIC YES; UR ASCORBIC ACID NEGATIVE (NEGATIVE); UR BACTERIA MANY /HPF (NONE SEEN); UR BILIRUBIN (Dip) NEGATIVE (NEGATIVE); UR BLOOD (Dip) NEGATIVE (NEGATIVE); UR CLARITY TURBID (CLEAR); UR COLOR AMBER (YELLOW); UR GLUCOSE (Dip) NEGATIVE (NEGATIVE); UR KETONES (Dip) NEGATIVE (NEGATIVE); UR LEUKOCYTE ESTERASE (Dip) 3+ Leu/ul (NEGATIVE); UR NITRITE (Dip) NEGATIVE (NEGATIVE); UR RBC 5 /HPF (0-5); UR SPECIFIC GRAVITY (Dip) 1.015 (1.003-1.030); UR TOTAL PROTEIN (Dip) 1+ mg/dl (NEGATIVE); UR UROBILINOGEN (Dip) NEGATIVE (NEGATIVE); UR WBC 42 /HPF (0-5)
[2018-12-01] MEDS: SOD CHLORIDE 0.9% 1,000 ML IV (22:03)
[2018-12-01] MEDS: CEFTRIAXONE 1 GM/50 ML (PMX) 50 ML IVPB (22:41)
[2018-12-02] MEDS ORDERED: ACETAMINOPHEN 325 MG TAB PO
[2018-12-02] MEDS ORDERED: ONDANSETRON 4 MG INJ IV
[2018-12-02] MEDS ORDERED: ACETAMINOPHEN 325 MG TAB GTB (01:30)
[2018-12-02] MEDS ORDERED: CEFTRIAXONE 1 GM/50 ML (PMX) 50 ML IVPB (01:30)
[2018-12-02] MEDS ORDERED: IPRATROPIUM (HFA) 12.9 GM INHALER INH (01:30)
[2018-12-02] MEDS ORDERED: ONDANSETRON 4 MG TAB GTB (01:30)
[2018-12-02] MEDS ORDERED: LEVETIRACETAM (100 MG/ML PO SYG) GTB (01:30)
[2018-12-02] MEDS ORDERED: NACL 0.9% 3 ML SYG IV (01:30)
[2018-12-02] MEDS: LEVETIRACETAM (100 MG/ML PO SYG) GTB ×3 (04:21→18:21)
[2018-12-02] MEDS: TOPIRAMATE 100 MG TAB GTB ×3 (04:21→21:00)
[2018-12-02] MEDS: ATORVASTATIN 10 MG TAB GTB ×2 (04:21→21:51)
[2018-12-02] MEDS: LISINOPRIL 20 MG TAB GTB ×2 (04:22→12:36)
[2018-12-02] MEDS: METHYLPHENIDATE 5 MG TAB GTB ×3 (05:51→21:00)
[2018-12-02 05:53] LABS: ADD MAN DIFF? NO
[2018-12-02 05:59] LABS: BASOPHILS % 0.3 % (0.0-2.0); EOSINOPHILS # 0.2 10^3/ul (0.0-0.5); EOSINOPHILS % 2.2 % (0.0-7.0); HEMATOCRIT 29.4 % (37.0-47.0); LYMPHOCYTES # 1.2 10^3/ul (0.8-2.9); LYMPHOCYTES % 11.4 % (15.0-51.0); MEAN CORPUSCULAR HEMOGLOBIN 26.9 pg (29.0-33.0); MEAN CORPUSCULAR HGB CONC 30.6 g/dl (32.0-37.0); MEAN PLATELET VOLUME 8.7 fl (7.4-10.4); MONOCYTE # 0.6 10^3/ul (0.3-0.9); MONOCYTES % 5.4 % (0.0-11.0); NEUTROPHIL # 8.2 10^3/ul (1.6-7.5); PLATELET COUNT 462 10^3/UL (140-415); RED BLOOD COUNT 3.34 10^6/ul (4.20-5.40); RED CELL DISTRIBUTION WIDTH 15.2 % (11.5-14.5)
[2018-12-02 05:59] LABS: WHITE BLOOD COUNT 10.3 10^3/ul (4.8-10.8)
[2018-12-02 06:27] LABS: ALANINE AMINOTRANSFERASE 24 IU/L (13-69); ALBUMIN 3.4 g/dl (3.3-4.9); ALBUMIN/GLOBULIN RATIO 0.77; ALKALINE PHOSPHATASE 153 IU/L (42-121); ANION GAP 9 (5-13); ASPARTATE AMINO TRANSFERASE 19 IU/L (15-46); BILIRUBIN,INDIRECT 0.1 mg/dl (0-1.1); BILIRUBIN,TOTAL 0.1 mg/dl (0.2-1.3); BLOOD UREA NITROGEN 43 mg/dl (7-20); CALCIUM 10.1 mg/dl (8.4-10.2); CARBON DIOXIDE 23 mmol/L (21-31); CHLORIDE 107 mmol/L (97-110); CREATININE 0.43 mg/dl (0.44-1.00); Estimated GFR > 60 mL/min (>60); GLUCOSE 122 mg/dl (70-220); POTASSIUM 3.9 mmol/L (3.5-5.1); SODIUM 139 mmol/L (135-144); TOTAL PROTEIN 7.8 g/dl (6.1-8.1)
[2018-12-02] MEDS ORDERED: NON-FORMULARY/PATIENT OWN MED (Amino Acids/Protein Hydrolys (Pro-Stat Liquid) 30 ML) GTB (09:00)
[2018-12-02] MEDS ORDERED: SELENIUM 200 MCG GTB (09:00)
[2018-12-02] MEDS ORDERED: LANSOPRAZOLE 30 MG CAP GTB (09:00)
[2018-12-02] MEDS: ZINC SULFATE 220 MG CAP GTB (09:07)
[2018-12-02] MEDS: MULTIVITAMINS/MINERALS TAB GTB (09:08)
[2018-12-02] MEDS: ASCORBIC ACID 500 MG TAB GTB (09:08)
[2018-12-02] MEDS: BISACODYL 10 MG SUPP PR (09:12)
[2018-12-02] MEDS: LANSOPRAZOLE 15 MG CAP GTB (09:37)
[2018-12-02] MEDS: LACTOBACILLUS RHAMNOSUS CAP PO ×2 (12:28→18:21)
[2018-12-02] MEDS: SOD CHLORIDE 0.9% 500 ML IV (16:01)
[2018-12-02] MEDS: SOD CHLORIDE 0.9% 1,000 ML IV ×2 (16:01→18:21)
[2018-12-02] MEDS: CEFTRIAXONE 1 GM/50 ML (PMX) 50 ML IVPB (21:51)
[2018-12-03] MEDS: LACTOBACILLUS RHAMNOSUS CAP PO ×4 (00:23→17:45)
[2018-12-03] MEDS: METHYLPHENIDATE 5 MG TAB GTB ×3 (00:24→21:58)
[2018-12-03] MEDS: TOPIRAMATE 100 MG TAB GTB ×3 (00:24→21:58)
[2018-12-03] MEDS: LEVETIRACETAM (100 MG/ML PO SYG) GTB ×3 (01:44→17:45)
[2018-12-03] MEDS: LISINOPRIL 20 MG TAB GTB ×2 (02:24→13:35)
[2018-12-03 06:39] LABS: ADD MAN DIFF? NO
[2018-12-03 06:58] LABS: BASOPHILS % 0.3 % (0.0-2.0); EOSINOPHILS # 0.2 10^3/ul (0.0-0.5); EOSINOPHILS % 1.7 % (0.0-7.0); HEMATOCRIT 26.6 % (37.0-47.0); HEMOGLOBIN 8.2 g/dl (12.0-16.0); LYMPHOCYTES # 1.2 10^3/ul (0.8-2.9); LYMPHOCYTES % 13.6 % (15.0-51.0); MEAN CORPUSCULAR HEMOGLOBIN 27.3 pg (29.0-33.0); MEAN CORPUSCULAR HGB CONC 30.8 g/dl (32.0-37.0); MEAN CORPUSCULAR VOLUME 88.7 fl (82.0-101.0); MEAN PLATELET VOLUME 8.8 fl (7.4-10.4); MONOCYTE # 0.5 10^3/ul (0.3-0.9); MONOCYTES % 5.3 % (0.0-11.0); NEUTROPHIL # 6.8 10^3/ul (1.6-7.5); NEUTROPHILS % 78.6 % (39.0-77.0); PLATELET COUNT 415 10^3/UL (140-415); RED CELL DISTRIBUTION WIDTH 15.4 % (11.5-14.5)
[2018-12-03 06:58] LABS: WHITE BLOOD COUNT 8.7 10^3/ul (4.8-10.8)
[2018-12-03 07:35] LABS: AADO2 Arterial 86.1 mmHg (7.0-24.0); Allen Test ACCEPTAB; Arterial Base Excess -4.5 mmol/L (-3.0-3); Arterial Blood Gas Oxygen Sat 98.7 mmHG (95.0-98.0); Arterial COHb 0.2 % (0.0-3.0); Arterial Fraction of Oxyhgb 97.9 % (93.0-99.0); Arterial HCO3 19.3 mmol/L (22.0-26.0); Arterial MetHb 0.6 % (0.0-1.5); Arterial pCO2 30.8 mmhg (35-45); MODE VENT - AC; Site Left Radial
[2018-12-03 07:42] LABS: ALANINE AMINOTRANSFERASE 16 IU/L (13-69); ALBUMIN 3.2 g/dl (3.3-4.9); ALBUMIN/GLOBULIN RATIO 0.76; ALKALINE PHOSPHATASE 126 IU/L (42-121); ANION GAP 12 (5-13); ASPARTATE AMINO TRANSFERASE 14 IU/L (15-46); BILIRUBIN,INDIRECT 0.1 mg/dl (0-1.1); BILIRUBIN,TOTAL 0.1 mg/dl (0.2-1.3); BLOOD UREA NITROGEN 25 mg/dl (7-20); CARBON DIOXIDE 19 mmol/L (21-31); CHLORIDE 111 mmol/L (97-110); CREATININE 0.42 mg/dl (0.44-1.00); Estimated GFR > 60 mL/min (>60); GLUCOSE 92 mg/dl (70-220); POTASSIUM 3.6 mmol/L (3.5-5.1); SODIUM 142 mmol/L (135-144); TOTAL PROTEIN 7.4 g/dl (6.1-8.1)
[2018-12-03] MEDS ORDERED: PENDING SANTYL ORDER FOR WOUND CARE XX (08:00)
[2018-12-03] MEDS: MULTIVITAMINS/MINERALS TAB GTB (08:50)
[2018-12-03] MEDS: ASCORBIC ACID 500 MG TAB GTB (08:50)
[2018-12-03] MEDS: ZINC SULFATE 220 MG CAP GTB (08:50)
[2018-12-03] MEDS: LANSOPRAZOLE 15 MG CAP GTB (08:50)
[2018-12-03] MEDS: BISACODYL 10 MG SUPP PR (08:50)
[2018-12-03] MEDS: SOD CHLORIDE 0.9% 1,000 ML IV (08:51)
[2018-12-03] MEDS: ENOXAPARIN 40 MG/0.4 ML SYG SC (16:35)
[2018-12-03] MEDS ORDERED: COLLAGENASE 5 GM (UD JAR) TOP (19:00)
[2018-12-03] MEDS: COLLAGENASE 5 GM (UD JAR) TOP (19:00)
[2018-12-03] MEDS: DAKINS 0.0125%(1/40) 473 ML SOLUTION TP (20:30)
[2018-12-03] MEDS: ATORVASTATIN 10 MG TAB GTB (21:58)
[2018-12-03] MEDS: CEFTRIAXONE 1 GM/50 ML (PMX) 50 ML IVPB (21:59)
[2018-12-04] MEDS: LISINOPRIL 20 MG TAB GTB ×2 (03:33→12:30)
[2018-12-04] MEDS: LACTOBACILLUS RHAMNOSUS CAP PO ×4 (03:33→17:47)
[2018-12-04] MEDS: LEVETIRACETAM (100 MG/ML PO SYG) GTB ×3 (03:34→17:47)
[2018-12-04 06:57] LABS: ADD MAN DIFF? NO
[2018-12-04 07:01] LABS: BASOPHILS % 0.5 % (0.0-2.0); EOSINOPHILS # 0.2 10^3/ul (0.0-0.5); EOSINOPHILS % 3.3 % (0.0-7.0); HEMATOCRIT 25.8 % (37.0-47.0); HEMOGLOBIN 7.9 g/dl (12.0-16.0); LYMPHOCYTES # 1.1 10^3/ul (0.8-2.9); LYMPHOCYTES % 18.8 % (15.0-51.0); MEAN CORPUSCULAR HEMOGLOBIN 27.2 pg (29.0-33.0); MEAN CORPUSCULAR HGB CONC 30.6 g/dl (32.0-37.0); MEAN PLATELET VOLUME 9.2 fl (7.4-10.4); MONOCYTE # 0.4 10^3/ul (0.3-0.9); MONOCYTES % 7.6 % (0.0-11.0); NEUTROPHILS % 69.5 % (39.0-77.0); PLATELET COUNT 383 10^3/UL (140-415); RED CELL DISTRIBUTION WIDTH 15.2 % (11.5-14.5)
[2018-12-04 07:01] LABS: WHITE BLOOD COUNT 5.8 10^3/ul (4.8-10.8)
[2018-12-04 08:15] LABS: ALANINE AMINOTRANSFERASE 22 IU/L (13-69); ALBUMIN 3.1 g/dl (3.3-4.9); ALBUMIN/GLOBULIN RATIO 0.77; ALKALINE PHOSPHATASE 135 IU/L (42-121); ANION GAP 8 (5-13); ASPARTATE AMINO TRANSFERASE 24 IU/L (15-46); BLOOD UREA NITROGEN 25 mg/dl (7-20); CALCIUM 9.6 mg/dl (8.4-10.2); CARBON DIOXIDE 21 mmol/L (21-31); CHLORIDE 113 mmol/L (97-110); CREATININE 0.37 mg/dl (0.44-1.00); Estimated GFR > 60 mL/min (>60); GLUCOSE 120 mg/dl (70-220); POTASSIUM 3.4 mmol/L (3.5-5.1); SODIUM 142 mmol/L (135-144); TOTAL PROTEIN 7.1 g/dl (6.1-8.1)
[2018-12-04] MEDS: COLLAGENASE 5 GM (UD JAR) TOP ×2 (08:27→08:57)
[2018-12-04] MEDS: DAKINS 0.0125%(1/40) 473 ML SOLUTION TP ×2 (08:28→08:57)
[2018-12-04] MEDS: METHYLPHENIDATE 5 MG TAB GTB ×2 (08:58→20:15)
[2018-12-04] MEDS: MULTIVITAMINS/MINERALS TAB GTB (08:58)
[2018-12-04] MEDS: ZINC SULFATE 220 MG CAP GTB (08:58)
[2018-12-04] MEDS: TOPIRAMATE 100 MG TAB GTB ×2 (08:58→20:11)
[2018-12-04] MEDS: BISACODYL 10 MG SUPP PR (08:59)
[2018-12-04] MEDS: LANSOPRAZOLE 15 MG CAP GTB (08:59)
[2018-12-04] MEDS: ASCORBIC ACID 500 MG TAB GTB (08:59)
[2018-12-04] MEDS: ENOXAPARIN 40 MG/0.4 ML SYG SC (09:01)
[2018-12-04] MEDS: SOD CHLORIDE 0.9% 1,000 ML IV ×2 (09:06→22:45)
[2018-12-04] MEDS: POTASSIUM CHLORIDE 100 ML IVPB ×2 (12:29→14:46)
[2018-12-04] MEDS: ATORVASTATIN 10 MG TAB GTB (20:11)
[2018-12-04] MEDS: CEFTRIAXONE 1 GM/50 ML (PMX) 50 ML IVPB (22:45)
[2018-12-05] MEDS: LACTOBACILLUS RHAMNOSUS CAP PO ×4 (00:58→17:36)
[2018-12-05] MEDS: LISINOPRIL 20 MG TAB GTB ×2 (01:00→13:11)
[2018-12-05] MEDS: LEVETIRACETAM (100 MG/ML PO SYG) GTB ×3 (01:16→17:36)
[2018-12-05 06:42] LABS: ADD MAN DIFF? NO
[2018-12-05 06:51] LABS: WHITE BLOOD COUNT 5.9 10^3/ul (4.8-10.8)
[2018-12-05 06:51] LABS: BASOPHILS % 0.3 % (0.0-2.0); EOSINOPHILS # 0.2 10^3/ul (0.0-0.5); EOSINOPHILS % 3.6 % (0.0-7.0); HEMATOCRIT 25.8 % (37.0-47.0); HEMOGLOBIN 7.8 g/dl (12.0-16.0); LYMPHOCYTES # 1.1 10^3/ul (0.8-2.9); LYMPHOCYTES % 17.8 % (15.0-51.0); MEAN CORPUSCULAR HGB CONC 30.2 g/dl (32.0-37.0); MEAN CORPUSCULAR VOLUME 89.3 fl (82.0-101.0); MEAN PLATELET VOLUME 9.1 fl (7.4-10.4); MONOCYTE # 0.4 10^3/ul (0.3-0.9); MONOCYTES % 6.6 % (0.0-11.0); NEUTROPHIL # 4.2 10^3/ul (1.6-7.5); NEUTROPHILS % 71.2 % (39.0-77.0); PLATELET COUNT 364 10^3/UL (140-415); RED BLOOD COUNT 2.89 10^6/ul (4.20-5.40); RED CELL DISTRIBUTION WIDTH 15.3 % (11.5-14.5)
[2018-12-05 07:17] LABS: ALANINE AMINOTRANSFERASE 21 IU/L (13-69); ALBUMIN 2.9 g/dl (3.3-4.9); ALKALINE PHOSPHATASE 110 IU/L (42-121); ANION GAP 6 (5-13); ASPARTATE AMINO TRANSFERASE 17 IU/L (15-46); BLOOD UREA NITROGEN 20 mg/dl (7-20); CALCIUM 9.1 mg/dl (8.4-10.2); CARBON DIOXIDE 22 mmol/L (21-31); CHLORIDE 112 mmol/L (97-110); CREATININE 0.33 mg/dl (0.44-1.00); Estimated GFR > 60 mL/min (>60); GLUCOSE 112 mg/dl (70-220); POTASSIUM 3.9 mmol/L (3.5-5.1); SODIUM 140 mmol/L (135-144); TOTAL PROTEIN 6.5 g/dl (6.1-8.1)
[2018-12-05] MEDS: TOPIRAMATE 100 MG TAB GTB ×2 (09:15→20:18)
[2018-12-05] MEDS: LANSOPRAZOLE 15 MG CAP GTB (09:15)
[2018-12-05] MEDS: BISACODYL 10 MG SUPP PR (09:16)
[2018-12-05] MEDS: COLLAGENASE 5 GM (UD JAR) TOP (09:16)
[2018-12-05] MEDS: ASCORBIC ACID 500 MG TAB GTB (09:16)
[2018-12-05] MEDS: MULTIVITAMINS/MINERALS TAB GTB (09:16)
[2018-12-05] MEDS: ZINC SULFATE 220 MG CAP GTB (09:16)
[2018-12-05] MEDS: DAKINS 0.0125%(1/40) 473 ML SOLUTION TP (09:17)
[2018-12-05] MEDS: ENOXAPARIN 40 MG/0.4 ML SYG SC (09:20)
[2018-12-05] MEDS: METHYLPHENIDATE 5 MG TAB GTB ×2 (09:22→20:18)
[2018-12-05] MEDS: SOD CHLORIDE 0.9% 1,000 ML IV (10:40)
[2018-12-05] MEDS: CEFTRIAXONE 1 GM/50 ML (PMX) 50 ML IVPB (19:10)
[2018-12-05] MEDS: ATORVASTATIN 10 MG TAB GTB (20:18)
== END 2018-12-05 20:55 | DRG 698 ==
LOC: E/R 18:55 → TEL 23:40
PROC: 5A1945Z Respiratory Ventilation, 24-96 Consecutive Hours (ICD-10-PCS; principal; 2018-12-01)
DX: T83.511A Infection and inflammatory reaction due to indwelling urethral catheter, initial encounter (principal); L89.213 Pressure ulcer of right hip, stage 3; L89.154 Pressure ulcer of sacral region, stage 4; J96.20 Acute and chronic respiratory failure, unspecified whether with hypoxia or hypercapnia; G93.49 Other encephalopathy; R13.10 Dysphagia, unspecified; D64.9 Anemia, unspecified; I10 Essential (primary) hypertension; Z93.0 Tracheostomy status; G40.909 Epilepsy, unspecified, not intractable, without status epilepticus; E78.5 Hyperlipidemia, unspecified; Z93.4 Other artificial openings of gastrointestinal tract status; Z86.73 Personal history of transient ischemic attack (TIA), and cerebral infarction without residual deficits; Y73.8 Miscellaneous gastroenterology and urology devices associated with adverse incidents, not elsewhere classified
CPT/HCPCS: 36415; 36600; 71045; 80053; 81001; 82803; 83605; 83735; 84484; 85025; 85610; 85730; 87040-91; 87081; 87086; 93005; 94002; 94003; 96374; 99285-25